=== PATIENT | female | born 1940 | race African-American/Black ===

== ENCOUNTER 2018-06-18 15:18 | Inpatient (IN) ==
[2018-06-18] MEDS ORDERED: SODIUM CHLORIDE 0.9% 500 ML IV STA (16:07)
[2018-06-18] MEDS ORDERED: DIPH/TET/ACEL PERT BOOSTER VACCINE 0.5 ML VIAL IM ONE (16:07)
[2018-06-18 16:55] LABS: Basophils % 0.1 % (0.0-0.8); Hemoglobin 12.5 GM/DL (12.0-16.0); Immature Granulocytes % 1.8 %; Immature Granulocytes Absolute 0.43 #; Lymphocytes # 0.8 10*3/uL (1.4-4.0); Lymphocytes % 3.2 % (21.3-54.2); Mean Corpuscular HGB Conc 33.8 GM/DL (32-36); Mean Corpuscular Hemoglobin 30 PG (27-34); Mean Corpuscular Volume 89.2 FL (87-102); Mean Platelet Volume 10.6 FL (9.6-12.0); Neutrophils # 21.9 10*3/uL (1.4-7.4); Neutrophils % 90.9 % (38.7-73.9); Platelet Count 74 T/CUMM (130-400); Red Blood Count 4.15 MC/CUMM (3.8-5.5); Red Cell Distribution Width 14.6 % (9.3-17.3)
[2018-06-18 17:04] LABS: INR 1.1; PT Patient Result 11.8 SECS
[2018-06-18 17:28] LABS: Albumin 2.9 G/DL (3.4-5.0); Bilirubin,Total 1.8 MG/DL (0.2-1.0); CKMB % 2.8 %; Calcium 8.5 MG/DL (8.5-10.1); Lactic Acid 2.9 MMOL/L (0.4-2.0); Osmolality,Calculated 272.5 MOS/KG (273-304); Total Protein 5.8 G/DL (6.4-8.3); Troponin I 0.026 NG/ML (0.00-0.045)
[2018-06-18 17:41] LABS: Band Neutrophils 4 % (0-10); Lymphocytes 4 % (20-55); Platelet Estimate Decreased; Segmented Neutrophils 88 % (50-85); Total Cells Counted 100
[2018-06-18 18:05] LABS: Sedimentation Rate-Westergren 20 MM/HR (0-30)
[2018-06-18] MEDS: PIPERACILLIN/TAZOBACTAM 3,375 MG in SODIUM CHLORIDE 0.9% 100 ML IV SCH (18:12)
[2018-06-18 18:21] LABS: Apearance,Urine CLEAR (Clear); Bilirubin,Urine Negative (Negative); Blood, Urine Moderate mg/dL (Negative); Glucose,Urine (UA) Negative (Negative); Ketones,Urine 5 mg/dL (Negative); Mucus,Urine Occasional /LPF (Occasional); Nitrite,Urine Negative (Negative); Protein,Urine Negative; RBC,Urine 1 /HPF (0-4); Urine Color Yellow (Yellow); Urine Specific Gravity 1.015 (1.001-1.035); WBC,Urine 1 /HPF (0-6)
[2018-06-18] MEDS ORDERED: METHOTREXATE 2.5 MG TABLET PO SCH (21:00)
[2018-06-18] MEDS: methylPREDNISolone SOD SUC 40 MG/1 ML VIAL IV SCH (21:27)
[2018-06-19] MEDS: PIPERACILLIN/TAZOBACTAM 3,375 MG in SODIUM CHLORIDE 0.9% 100 ML IV SCH ×3 (01:37→18:22)
[2018-06-19] MEDS: methylPREDNISolone SOD SUC 40 MG/1 ML VIAL IV SCH ×2 (05:44→18:19)
[2018-06-19] MEDS: THYROID 60 MG TABLET PO SCH (05:45)
[2018-06-19 06:08] LABS: Basophils % 0.1 % (0.0-0.8); Hematocrit 32.6 VOL% (35.7-47.0); Hemoglobin 11.2 GM/DL (12.0-16.0); Immature Granulocytes % 1.6 %; Lymphocytes # 0.4 10*3/uL (1.4-4.0); Lymphocytes % 1.8 % (21.3-54.2); Mean Corpuscular HGB Conc 34.4 GM/DL (32-36); Mean Corpuscular Hemoglobin 31 PG (27-34); Mean Corpuscular Volume 90.1 FL (87-102); Mean Platelet Volume 11.2 FL (9.6-12.0); Monocytes # 0.5 10*3/uL (0.11-0.8); Monocytes % 2.5 % (1.7-12.7); Neutrophils # 18.1 10*3/uL (1.4-7.4); Red Blood Count 3.62 MC/CUMM (3.8-5.5); Red Cell Distribution Width 15.1 % (9.3-17.3); White Blood Count 19.2 T/CUMM (4-12)
[2018-06-19 06:09] LABS: Platelet Count 69 T/CUMM (130-400)
[2018-06-19 06:29] LABS: Band Neutrophils 2 % (0-10); Hypochromasia 1+; Lymphocytes 2 % (20-55); Ovalocytes Slight; Platelet Estimate Decreased; Segmented Neutrophils 93 % (50-85); Total Cells Counted 100
[2018-06-19 06:30] LABS: Albumin 2.3 G/DL (3.4-5.0); Bilirubin,Total 1.7 MG/DL (0.2-1.0); Calcium 8.2 MG/DL (8.5-10.1); Osmolality,Calculated 280.1 MOS/KG (273-304); Potassium 3.9 MMOL/L (3.5-5.1); Total Protein 5.2 G/DL (6.4-8.3)
[2018-06-19 06:45] LABS: Troponin I 0.063 NG/ML (0.00-0.045)
[2018-06-19] MEDS ORDERED: INFLUENZA VIRUS VACCINE 0.5 ML SYRINGE IM ONE (09:00)
[2018-06-19] MEDS ORDERED: SODIUM CHLORIDE 0.9% 1,000 ML IV SCH (10:30)
[2018-06-19] MEDS: SODIUM CHLORIDE 0.9% 1,000 ML IV SCH ×2 (12:00→23:39)
[2018-06-19] MEDS: FOLIC ACID 1 MG TABLET PO SCH (14:23)
[2018-06-19] MEDS ORDERED: SKIN HEALING OINT (AQUAPHOR) 50 GM TUBE TOP PRN (15:55)
[2018-06-19 18:17] LABS: Total Protein 5.9 G/DL (6.4-8.3)
[2018-06-20] MEDS: PIPERACILLIN/TAZOBACTAM 3,375 MG in SODIUM CHLORIDE 0.9% 100 ML IV SCH ×3 (03:20→17:51)
[2018-06-20 05:13] LABS: Basophils % 0.1 % (0.0-0.8); Hematocrit 30.8 VOL% (35.7-47.0); Immature Granulocytes % 1.3 %; Immature Granulocytes Absolute 0.21 #; Lymphocytes # 0.2 10*3/uL (1.4-4.0); Lymphocytes % 1.4 % (21.3-54.2); Mean Corpuscular HGB Conc 32.5 GM/DL (32-36); Mean Corpuscular Hemoglobin 30 PG (27-34); Mean Corpuscular Volume 90.9 FL (87-102); Mean Platelet Volume 11.2 FL (9.6-12.0); Monocytes # 0.2 10*3/uL (0.11-0.8); Monocytes % 1.3 % (1.7-12.7); Neutrophils # 15.9 10*3/uL (1.4-7.4); Neutrophils % 95.9 % (38.7-73.9); Platelet Count 68 T/CUMM (130-400); Red Blood Count 3.39 MC/CUMM (3.8-5.5); Red Cell Distribution Width 15.1 % (9.3-17.3); White Blood Count 16.6 T/CUMM (4-12)
[2018-06-20 05:36] LABS: Platelet Estimate Decreased; Segmented Neutrophils 99 % (50-85); Total Cells Counted 100
[2018-06-20 05:37] LABS: Hypochromasia Slight; Polychromasia Few
[2018-06-20 06:01] LABS: Albumin 1.9 G/DL (3.4-5.0); Calcium 8.1 MG/DL (8.5-10.1); Osmolality,Calculated 284.8 MOS/KG (273-304); Potassium 3.4 MMOL/L (3.5-5.1); Total Protein 5.1 G/DL (6.4-8.3)
[2018-06-20] MEDS: THYROID 60 MG TABLET PO SCH (06:20)
[2018-06-20] MEDS: methylPREDNISolone SOD SUC 40 MG/1 ML VIAL IV SCH ×2 (06:20→17:52)
[2018-06-20 07:40] LABS: Immunoglobulin A (Chem) 94 MG/DL (70-400); Immunoglobulin G (Chem) 383 MG/DL (700-1600); Immunoglobulin M (Chem) 26 MG/DL (40-230); Total Protein (Chem) 5.9 G/DL (6.4-8.3)
[2018-06-20 08:55] LABS: Albumin (SPE) 3.3 G/DL (3.2-5.3); Albumin (SPE) Rel % 55.7 %; Alpha 1 (SPE) 0.4 G/DL (0.1-0.4); Alpha 1 (SPE) Rel % 6.9 %; Alpha 2 (SPE) Rel % 17.6 %; Beta (SPE) 0.8 G/DL (0.5-1.1); Beta (SPE) Rel % 13.8 %; Gamma (SPE) 0.4 G/DL (0.7-1.7)
[2018-06-20] MEDS: FOLIC ACID 1 MG TABLET PO SCH (09:22)
[2018-06-20] MEDS: SODIUM CHLORIDE 0.9% 1,000 ML IV SCH ×2 (15:09→22:55)
[2018-06-20] MEDS: CARVEDILOL 12.5 MG TABLET PO SCH (17:52)
[2018-06-21] MEDS: PIPERACILLIN/TAZOBACTAM 3,375 MG in SODIUM CHLORIDE 0.9% 100 ML IV SCH ×4 (02:10→17:07)
[2018-06-21 05:57] LABS: Basophils % 0.1 % (0.0-0.8); Hematocrit 29.6 VOL% (35.7-47.0); Hemoglobin 9.8 GM/DL (12.0-16.0); Immature Granulocytes % 0.9 %; Immature Granulocytes Absolute 0.11 #; Lymphocytes # 0.3 10*3/uL (1.4-4.0); Lymphocytes % 2.3 % (21.3-54.2); Mean Corpuscular HGB Conc 33.1 GM/DL (32-36); Mean Corpuscular Hemoglobin 30 PG (27-34); Mean Corpuscular Volume 91.4 FL (87-102); Mean Platelet Volume 11.7 FL (9.6-12.0); Monocytes # 0.1 10*3/uL (0.11-0.8); Monocytes % 0.6 % (1.7-12.7); Neutrophils # 12.1 10*3/uL (1.4-7.4); Neutrophils % 96.1 % (38.7-73.9); Platelet Count 90 T/CUMM (130-400); Red Blood Count 3.24 MC/CUMM (3.8-5.5); Red Cell Distribution Width 14.7 % (9.3-17.3); White Blood Count 12.6 T/CUMM (4-12)
[2018-06-21 06:14] LABS: Albumin 1.8 G/DL (3.4-5.0); Bilirubin,Total 0.8 MG/DL (0.2-1.0); Calcium 8.1 MG/DL (8.5-10.1); Osmolality,Calculated 289.5 MOS/KG (273-304); Potassium 3.4 MMOL/L (3.5-5.1)
[2018-06-21 06:28] LABS: Lymphocytes 1 % (20-55); Platelet Estimate Decreased; Segmented Neutrophils 99 % (50-85); Total Cells Counted 100
[2018-06-21 06:29] LABS: Polychromasia Few
[2018-06-21] MEDS: methylPREDNISolone SOD SUC 40 MG/1 ML VIAL IV SCH ×3 (06:56→17:37)
[2018-06-21] MEDS: THYROID 60 MG TABLET PO SCH (06:56)
[2018-06-21] MEDS: POTASSIUM CHLORIDE 20 MEQ TABLET PO PRN ×3 (07:56→15:16)
[2018-06-21] MEDS: FOLIC ACID 1 MG TABLET PO SCH ×2 (07:56→08:54)
[2018-06-21] MEDS: CARVEDILOL 12.5 MG TABLET PO SCH ×3 (07:58→16:09)
[2018-06-21] MEDS: LOSARTAN 25 MG TABLET PO SCH (07:59)
[2018-06-21] MEDS: SODIUM CHLORIDE 0.9% 1,000 ML IV SCH (13:24)
[2018-06-22] MEDS: PIPERACILLIN/TAZOBACTAM 3,375 MG in SODIUM CHLORIDE 0.9% 100 ML IV SCH ×3 (02:54→17:11)
[2018-06-22] MEDS: SODIUM CHLORIDE 0.9% 1,000 ML IV SCH ×2 (02:57→17:17)
[2018-06-22 05:03] LABS: Basophils % 0.1 % (0.0-0.8); Hematocrit 28.6 VOL% (35.7-47.0); Hemoglobin 9.5 GM/DL (12.0-16.0); Immature Granulocytes % 0.8 %; Immature Granulocytes Absolute 0.07 #; Lymphocytes # 0.5 10*3/uL (1.4-4.0); Lymphocytes % 5.8 % (21.3-54.2); Mean Corpuscular HGB Conc 33.2 GM/DL (32-36); Mean Corpuscular Hemoglobin 30 PG (27-34); Mean Corpuscular Volume 91.7 FL (87-102); Mean Platelet Volume 11.2 FL (9.6-12.0); Monocytes # 0.1 10*3/uL (0.11-0.8); Monocytes % 0.7 % (1.7-12.7); Neutrophils # 7.9 10*3/uL (1.4-7.4); Neutrophils % 92.6 % (38.7-73.9); Platelet Count 87 T/CUMM (130-400); Red Blood Count 3.12 MC/CUMM (3.8-5.5); Red Cell Distribution Width 14.9 % (9.3-17.3); White Blood Count 8.5 T/CUMM (4-12)
[2018-06-22 05:33] LABS: Calcium 7.9 MG/DL (8.5-10.1); Osmolality,Calculated 288.5 MOS/KG (273-304)
[2018-06-22] MEDS: THYROID 60 MG TABLET PO SCH (05:49)
[2018-06-22] MEDS: methylPREDNISolone SOD SUC 40 MG/1 ML VIAL IV SCH (05:49)
[2018-06-22 06:02] LABS: Band Neutrophils 2 % (0-10); Hypochromasia 2+; Lymphocytes 5 % (20-55); Platelet Estimate Decreased; Segmented Neutrophils 92 % (50-85); Total Cells Counted 100
[2018-06-22] MEDS: CARVEDILOL 12.5 MG TABLET PO SCH ×2 (08:59→17:11)
[2018-06-22] MEDS: FOLIC ACID 1 MG TABLET PO SCH (08:59)
[2018-06-22] MEDS: LOSARTAN 25 MG TABLET PO SCH (08:59)
[2018-06-23] MEDS: PIPERACILLIN/TAZOBACTAM 3,375 MG in SODIUM CHLORIDE 0.9% 100 ML IV SCH ×3 (01:56→17:12)
[2018-06-23 05:48] LABS: Basophils % 0.1 % (0.0-0.8); Hematocrit 31.5 VOL% (35.7-47.0); Hemoglobin 10.1 GM/DL (12.0-16.0); Immature Granulocytes % 0.9 %; Immature Granulocytes Absolute 0.08 #; Lymphocytes # 1.2 10*3/uL (1.4-4.0); Lymphocytes % 13.3 % (21.3-54.2); Mean Corpuscular HGB Conc 32.1 GM/DL (32-36); Mean Corpuscular Hemoglobin 30 PG (27-34); Mean Corpuscular Volume 92.1 FL (87-102); Mean Platelet Volume 10.7 FL (9.6-12.0); Monocytes # 0.1 10*3/uL (0.11-0.8); Monocytes % 0.9 % (1.7-12.7); Neutrophils # 7.9 10*3/uL (1.4-7.4); Neutrophils % 84.8 % (38.7-73.9); Platelet Count 81 T/CUMM (130-400); Red Blood Count 3.42 MC/CUMM (3.8-5.5); Red Cell Distribution Width 14.6 % (9.3-17.3); White Blood Count 9.3 T/CUMM (4-12)
[2018-06-23 06:25] LABS: Anisocytosis 1+; Band Neutrophils 7 % (0-10); Lymphocytes 21 % (20-55); Nucleated Red Blood Cells 1 (0-5); Platelet Estimate Decreased; Segmented Neutrophils 71 % (50-85); Total Cells Counted 100
[2018-06-23] MEDS: THYROID 60 MG TABLET PO SCH (07:02)
[2018-06-23] MEDS: CARVEDILOL 12.5 MG TABLET PO SCH ×2 (08:38→17:12)
[2018-06-23] MEDS: methylPREDNISolone SOD SUC 40 MG/1 ML VIAL IV SCH (08:39)
[2018-06-23] MEDS: FOLIC ACID 1 MG TABLET PO SCH (08:39)
[2018-06-23] MEDS: LOSARTAN 25 MG TABLET PO SCH (08:39)
[2018-06-23] MEDS: IMMUNE GLOBULIN 10% 20 GM, IMMUNE GLOBULIN 10% 5 GM in PREMIX 1 EACH IV SCH (09:56)
[2018-06-24] MEDS: PIPERACILLIN/TAZOBACTAM 3,375 MG in SODIUM CHLORIDE 0.9% 100 ML IV SCH ×3 (01:32→18:22)
[2018-06-24] MEDS: THYROID 60 MG TABLET PO SCH (06:49)
[2018-06-24] MEDS: IMMUNE GLOBULIN 10% 20 GM, IMMUNE GLOBULIN 10% 5 GM in PREMIX 1 EACH IV SCH (09:04)
[2018-06-24] MEDS: FOLIC ACID 1 MG TABLET PO SCH (09:10)
[2018-06-24] MEDS: LOSARTAN 25 MG TABLET PO SCH (09:11)
[2018-06-24] MEDS: methylPREDNISolone SOD SUC 40 MG/1 ML VIAL IV SCH (09:11)
[2018-06-24] MEDS: CARVEDILOL 12.5 MG TABLET PO SCH ×2 (09:11→17:20)
[2018-06-24 09:25] LABS: Osmolality,Calculated 279.7 MOS/KG (273-304); Potassium 3.6 MMOL/L (3.5-5.1)
[2018-06-24] MEDS: POTASSIUM CHLORIDE 20 MEQ TABLET PO PRN (09:27)
[2018-06-25] MEDS: PIPERACILLIN/TAZOBACTAM 3,375 MG in SODIUM CHLORIDE 0.9% 100 ML IV SCH ×3 (04:26→23:45)
[2018-06-25 05:24] LABS: Basophils % 0.2 % (0.0-0.8); Hematocrit 29.6 VOL% (35.7-47.0); Hemoglobin 9.6 GM/DL (12.0-16.0); Immature Granulocytes % 0.8 %; Immature Granulocytes Absolute 0.05 #; Lymphocytes # 1.2 10*3/uL (1.4-4.0); Lymphocytes % 19.1 % (21.3-54.2); Mean Corpuscular HGB Conc 32.4 GM/DL (32-36); Mean Corpuscular Hemoglobin 30 PG (27-34); Mean Corpuscular Volume 91.1 FL (87-102); Mean Platelet Volume 11.2 FL (9.6-12.0); Monocytes # 0.1 10*3/uL (0.11-0.8); Monocytes % 1.8 % (1.7-12.7); Neutrophils # 4.7 10*3/uL (1.4-7.4); Neutrophils % 78.1 % (38.7-73.9); Platelet Count 69 T/CUMM (130-400); Red Blood Count 3.25 MC/CUMM (3.8-5.5); Red Cell Distribution Width 14.5 % (9.3-17.3)
[2018-06-25 06:00] LABS: Hypochromasia 1+; Lymphocytes 19 % (20-55); Platelet Estimate Decreased; Segmented Neutrophils 80 % (50-85); Total Cells Counted 100
[2018-06-25 06:02] LABS: Osmolality,Calculated 278.8 MOS/KG (273-304); Potassium 3.4 MMOL/L (3.5-5.1)
[2018-06-25] MEDS: THYROID 60 MG TABLET PO SCH (06:46)
[2018-06-25] MEDS ORDERED: MAGNESIUM SULF RIDER 2 GM in PREMIX 1 EACH IV PRN (08:07)
[2018-06-25] MEDS ORDERED: MAGNESIUM SULF RIDER 4 GM in PREMIX 1 EACH IV PRN (08:07)
[2018-06-25] MEDS: CARVEDILOL 12.5 MG TABLET PO SCH ×2 (08:55→17:47)
[2018-06-25] MEDS: POTASSIUM CHLORIDE 20 MEQ TABLET PO PRN ×3 (08:56→13:38)
[2018-06-25] MEDS: LOSARTAN 25 MG TABLET PO SCH (08:56)
[2018-06-25] MEDS: FOLIC ACID 1 MG TABLET PO SCH (08:56)
[2018-06-25] MEDS: methylPREDNISolone SOD SUC 40 MG/1 ML VIAL IV SCH (08:56)
[2018-06-25] MEDS: IMMUNE GLOBULIN 10% 20 GM, IMMUNE GLOBULIN 10% 5 GM in PREMIX 1 EACH IV SCH (12:22)
[2018-06-26] MEDS: PIPERACILLIN/TAZOBACTAM 3,375 MG in SODIUM CHLORIDE 0.9% 100 ML IV SCH (01:34)
[2018-06-26 04:25] LABS: Anti SS-A Antibodies < 16 EU/ML
[2018-06-26 05:43] LABS: Basophils % 0.2 % (0.0-0.8); Hematocrit 30.7 VOL% (35.7-47.0); Hemoglobin 9.8 GM/DL (12.0-16.0); Immature Granulocytes % 0.6 %; Immature Granulocytes Absolute 0.04 #; Mean Corpuscular HGB Conc 31.9 GM/DL (32-36); Mean Corpuscular Hemoglobin 29 PG (27-34); Mean Corpuscular Volume 90.8 FL (87-102); Mean Platelet Volume 10.6 FL (9.6-12.0); Monocytes # 0.1 10*3/uL (0.11-0.8); Monocytes % 1.9 % (1.7-12.7); Neutrophils # 5.2 10*3/uL (1.4-7.4); Neutrophils % 81.3 % (38.7-73.9); Platelet Count 77 T/CUMM (130-400); Red Blood Count 3.38 MC/CUMM (3.8-5.5); Red Cell Distribution Width 14.3 % (9.3-17.3); White Blood Count 6.4 T/CUMM (4-12)
[2018-06-26 06:07] LABS: Band Neutrophils 4 % (0-10); Eosinophils 1 % (0-10); Hypochromasia 1+; Lymphocytes 11 % (20-55); Ovalocytes Slight; Platelet Estimate Decreased; Segmented Neutrophils 83 % (50-85); Total Cells Counted 100
[2018-06-26 06:16] LABS: Calcium 8.2 MG/DL (8.5-10.1); Potassium 4.1 MMOL/L (3.5-5.1)
[2018-06-26] MEDS: THYROID 60 MG TABLET PO SCH (06:43)
[2018-06-26] MEDS: IMMUNE GLOBULIN 10% 20 GM, IMMUNE GLOBULIN 10% 5 GM in PREMIX 1 EACH IV SCH (09:29)
[2018-06-26] MEDS: CARVEDILOL 12.5 MG TABLET PO SCH ×2 (09:30→18:03)
[2018-06-26] MEDS: FOLIC ACID 1 MG TABLET PO SCH (09:30)
[2018-06-26] MEDS: methylPREDNISolone SOD SUC 40 MG/1 ML VIAL IV SCH (09:30)
[2018-06-26] MEDS: LOSARTAN 25 MG TABLET PO SCH (09:30)
[2018-06-26] MEDS: CLINDAMYCIN 300 MG CAPSULE PO SCH ×2 (16:07→21:45)
[2018-06-27 05:43] LABS: Hemoglobin 9.7 GM/DL (12.0-16.0); Immature Granulocytes % 0.4 %; Immature Granulocytes Absolute 0.03 #; Lymphocytes # 1.1 10*3/uL (1.4-4.0); Mean Corpuscular HGB Conc 32.3 GM/DL (32-36); Mean Corpuscular Hemoglobin 29 PG (27-34); Mean Corpuscular Volume 90.4 FL (87-102); Mean Platelet Volume 11.3 FL (9.6-12.0); Monocytes # 0.2 10*3/uL (0.11-0.8); Monocytes % 2.7 % (1.7-12.7); Neutrophils # 5.9 10*3/uL (1.4-7.4); Neutrophils % 81.9 % (38.7-73.9); Platelet Count 83 T/CUMM (130-400); Red Blood Count 3.32 MC/CUMM (3.8-5.5); Red Cell Distribution Width 14.4 % (9.3-17.3); White Blood Count 7.1 T/CUMM (4-12)
[2018-06-27] MEDS: CLINDAMYCIN 300 MG CAPSULE PO SCH ×3 (06:05→21:26)
[2018-06-27] MEDS: THYROID 60 MG TABLET PO SCH (06:05)
[2018-06-27 07:07] LABS: Calcium 8.3 MG/DL (8.5-10.1)
[2018-06-27 07:08] LABS: Potassium 3.9 MMOL/L (3.5-5.1)
[2018-06-27 07:40] LABS: Band Neutrophils 1 % (0-10); Hypochromasia 1+; Lymphocytes 12 % (20-55); Segmented Neutrophils 82 % (50-85); Total Cells Counted 100
[2018-06-27 07:41] LABS: Microcytosis 1+; Ovalocytes Slight; Platelet Estimate Decreased
[2018-06-27] MEDS: methylPREDNISolone SOD SUC 40 MG/1 ML VIAL IV SCH (10:00)
[2018-06-27] MEDS: FOLIC ACID 1 MG TABLET PO SCH (10:00)
[2018-06-27] MEDS: LOSARTAN 25 MG TABLET PO SCH (10:00)
[2018-06-27] MEDS: CARVEDILOL 12.5 MG TABLET PO SCH ×2 (10:01→16:40)
[2018-06-27] MEDS: IMMUNE GLOBULIN 10% 20 GM, IMMUNE GLOBULIN 10% 5 GM in PREMIX 1 EACH IV SCH (10:01)
[2018-06-27] MEDS: POTASSIUM CHLORIDE 20 MEQ TABLET PO PRN (16:40)
[2018-06-28 05:14] LABS: Hemoglobin 9.8 GM/DL (12.0-16.0); Immature Granulocytes % 0.7 %; Immature Granulocytes Absolute 0.04 #; Lymphocytes # 0.8 10*3/uL (1.4-4.0); Lymphocytes % 14.1 % (21.3-54.2); Mean Corpuscular HGB Conc 32.7 GM/DL (32-36); Mean Corpuscular Hemoglobin 30 PG (27-34); Mean Corpuscular Volume 91.2 FL (87-102); Mean Platelet Volume 11.1 FL (9.6-12.0); Monocytes # 0.2 10*3/uL (0.11-0.8); Neutrophils # 4.6 10*3/uL (1.4-7.4); Neutrophils % 82.2 % (38.7-73.9); Red Blood Count 3.29 MC/CUMM (3.8-5.5); Red Cell Distribution Width 14.4 % (9.3-17.3); White Blood Count 5.6 T/CUMM (4-12)
[2018-06-28 05:20] LABS: Platelet Count 89 T/CUMM (130-400)
[2018-06-28 05:30] LABS: Calcium 8.4 MG/DL (8.5-10.1); Potassium 4.1 MMOL/L (3.5-5.1)
[2018-06-28] MEDS: THYROID 60 MG TABLET PO SCH (05:49)
[2018-06-28] MEDS: CLINDAMYCIN 300 MG CAPSULE PO SCH ×2 (05:49→13:48)
[2018-06-28 06:39] LABS: Hypochromasia 1+; Ovalocytes Slight; Platelet Estimate Decreased
[2018-06-28 06:40] LABS: Microcytosis 1+
[2018-06-28] MEDS: methylPREDNISolone SOD SUC 40 MG/1 ML VIAL IV SCH (09:29)
[2018-06-28] MEDS: LOSARTAN 25 MG TABLET PO SCH (09:29)
[2018-06-28] MEDS: CARVEDILOL 12.5 MG TABLET PO SCH (09:29)
[2018-06-28] MEDS: FOLIC ACID 1 MG TABLET PO SCH (09:29)
[2018-06-28] MEDS: IMMUNE GLOBULIN 10% 20 GM, IMMUNE GLOBULIN 10% 5 GM in PREMIX 1 EACH IV SCH (09:43)
[2018-06-28 11:29] VITALS: BP 159/86
== END 2018-06-28 14:20 | disposition swing bed (61) | DRG 546 ==
LOC: EDBD → EDUNIT# → N.ED 15:18 → SUATTDRO 18:19 → N.EDINP 18:19 → N.5E 19:21
PROVIDERS: ADMIT Internal Medicine; ATTEND Family Medicine

== ENCOUNTER 2018-06-29 23:10 | Inpatient (IN) ==
[2018-06-29] MEDS ORDERED: SODIUM CHLORIDE 0.9% 500 ML IV STA (23:54)
[2018-06-29] MEDS ORDERED: ONDANSETRON 4 MG/2 ML VIAL IV STA (23:57)
[2018-06-29] MEDS ORDERED: PANTOPRAZOLE 40 MG VIAL IV STA (23:57)
[2018-06-30 00:19] LABS: Basophils % 0.4 % (0.0-0.8); Hematocrit 38.3 VOL% (35.7-47.0); Hemoglobin 12.8 GM/DL (12.0-16.0); Immature Granulocytes % 1.6 %; Immature Granulocytes Absolute 0.04 #; Lymphocytes # 0.4 10*3/uL (1.4-4.0); Lymphocytes % 17.5 % (21.3-54.2); Mean Corpuscular HGB Conc 33.4 GM/DL (32-36); Mean Corpuscular Hemoglobin 30 PG (27-34); Mean Corpuscular Volume 89.5 FL (87-102); Mean Platelet Volume 10.8 FL (9.6-12.0); Monocytes # 0.1 10*3/uL (0.11-0.8); Monocytes % 4.4 % (1.7-12.7); NRBC # 0.02 10*3/uL; Neutrophils # 1.9 10*3/uL (1.4-7.4); Neutrophils % 76.1 % (38.7-73.9); Red Blood Count 4.28 MC/CUMM (3.8-5.5); Red Cell Distribution Width 14.3 % (9.3-17.3); White Blood Count 2.5 T/CUMM (4-12)
[2018-06-30 00:22] LABS: Platelet Count 70 T/CUMM (130-400)
[2018-06-30 00:37] LABS: INR 1.1; PT Patient Result 11.8 SECS; Partial Thromboplastin Time 23.8 SECS (0-40)
[2018-06-30 00:58] LABS: Albumin 2.2 G/DL (3.4-5.0); Bilirubin,Total 0.8 MG/DL (0.2-1.0); Calcium 8.1 MG/DL (8.5-10.1); Osmolality,Calculated 262.9 MOS/KG (273-304); Potassium 4.2 MMOL/L (3.5-5.1); Troponin I 0.032 NG/ML (0.00-0.045)
[2018-06-30] MEDS ORDERED: MORPHINE 4 MG/1 ML VIAL IV PRN (01:37)
[2018-06-30] MEDS ORDERED: ONDANSETRON 4 MG/2 ML VIAL IV PRN (01:37)
[2018-06-30] MEDS ORDERED: diphenhydrAMINE CAP 25 MG CAPSULE PO PRN (01:37)
[2018-06-30] MEDS ORDERED: NICOTINE 21 MG/24 HR PATCH TRANSDERM PRN (01:37)
[2018-06-30] MEDS ORDERED: PROMETHAZINE 25 MG/1 ML VIAL IM PRN (01:37)
[2018-06-30] MEDS ORDERED: ACETAMINOPHEN 325 MG TABLET PO PRN (01:37)
[2018-06-30 03:05] LABS: Hypochromasia Slight; Platelet Estimate Decreased
[2018-06-30] MEDS: SODIUM CHLORIDE 0.9% 1,000 ML IV SCH ×5 (03:57→19:40)
[2018-06-30] MEDS: LOSARTAN 25 MG TABLET PO SCH (09:50)
[2018-06-30] MEDS: CARVEDILOL 12.5 MG TABLET PO SCH ×2 (09:50→21:35)
[2018-06-30] MEDS: THYROID 60 MG TABLET PO SCH (09:50)
[2018-06-30 14:32] LABS: Hematocrit 27.9 VOL% (35.7-47.0); Hemoglobin 9.2 GM/DL (12.0-16.0)
[2018-06-30] MEDS: predniSONE 20 MG TABLET PO SCH (14:46)
[2018-06-30] MEDS: PANTOPRAZOLE 40 MG TABLET PO SCH ×2 (14:47→21:35)
[2018-06-30] MEDS ORDERED: POLYETHYLENE GLYCOL POWDER 17 GM PACK PO SCH (21:00)
[2018-07-01 01:17] LABS: Basophils % 0.5 % (0.0-0.8); Hematocrit 25.5 VOL% (35.7-47.0); Hemoglobin 8.2 GM/DL (12.0-16.0); Immature Granulocytes % 1.4 %; Immature Granulocytes Absolute 0.03 #; Lymphocytes # 0.4 10*3/uL (1.4-4.0); Lymphocytes % 19.1 % (21.3-54.2); Mean Corpuscular HGB Conc 32.2 GM/DL (32-36); Mean Corpuscular Hemoglobin 29 PG (27-34); Mean Corpuscular Volume 90.7 FL (87-102); Mean Platelet Volume 10.7 FL (9.6-12.0); Monocytes # 0.1 10*3/uL (0.11-0.8); Monocytes % 4.1 % (1.7-12.7); Neutrophils # 1.7 10*3/uL (1.4-7.4); Neutrophils % 74.9 % (38.7-73.9); Platelet Count 85 T/CUMM (130-400); Red Blood Count 2.81 MC/CUMM (3.8-5.5); Red Cell Distribution Width 14.1 % (9.3-17.3); White Blood Count 2.2 T/CUMM (4-12)
[2018-07-01 01:44] LABS: Anisocytosis Slight; Band Neutrophils 22 % (0-10); Eosinophils 1 % (0-10); Lymphocytes 14 % (20-55); Macrocytosis Slight; Metamyelocytes 1 %; Platelet Estimate Decreased; Segmented Neutrophils 57 % (50-85); Total Cells Counted 100
[2018-07-01] MEDS ORDERED: MAGNESIUM CITRATE 300 ML BOTTLE PO ONE (06:00)
[2018-07-01] MEDS: BISACODYL 5 MG TABLET PO SCH ×3 (06:49→21:00)
[2018-07-01] MEDS: predniSONE 20 MG TABLET PO SCH (09:00)
[2018-07-01] MEDS: THYROID 60 MG TABLET PO SCH (09:00)
[2018-07-01] MEDS: LOSARTAN 25 MG TABLET PO SCH (09:00)
[2018-07-01] MEDS: PANTOPRAZOLE 40 MG TABLET PO SCH ×2 (09:00→21:01)
[2018-07-01] MEDS: CARVEDILOL 12.5 MG TABLET PO SCH ×2 (09:01→21:01)
[2018-07-01] MEDS ORDERED: SODIUM CHLORIDE 0.9% 1,000 ML IV PRN (10:35)
[2018-07-01] MEDS ORDERED: FUROSEMIDE 20 MG/2 ML VIAL IV PRN (10:35)
[2018-07-01] MEDS: SODIUM CHLORIDE 0.9% 1,000 ML IV SCH ×3 (11:24→17:52)
[2018-07-01 13:01] LABS: Hematocrit 25.2 VOL% (35.7-47.0); Hemoglobin 8.4 GM/DL (12.0-16.0)
[2018-07-01] MEDS ORDERED: FUROSEMIDE 20 MG/2 ML VIAL IV SCH (17:30)
[2018-07-01] MEDS ORDERED: POLYETHYLENE GLYCOL POWDER 255 GM BOTTLE PO ONE (18:00)
[2018-07-01 22:57] LABS: Hematocrit 32.9 VOL% (35.7-47.0)
[2018-07-01 22:59] LABS: Hemoglobin 11.2 GM/DL (12.0-16.0)
[2018-07-02 01:12] LABS: Hematocrit 30.3 VOL% (35.7-47.0); Hemoglobin 10.2 GM/DL (12.0-16.0)
[2018-07-02] MEDS: BISACODYL 5 MG TABLET PO SCH ×4 (01:17→21:07)
[2018-07-02 04:50] LABS: Hematocrit 30.5 VOL% (35.7-47.0); Hemoglobin 10.2 GM/DL (12.0-16.0)
[2018-07-02] MEDS: SODIUM CHLORIDE 0.9% 1,000 ML IV SCH ×3 (05:50→13:25)
[2018-07-02 07:23] LABS: Osmolality,Calculated 270.2 MOS/KG (273-304); Potassium 3.2 MMOL/L (3.5-5.1)
[2018-07-02] MEDS: LOSARTAN 25 MG TABLET PO SCH (09:35)
[2018-07-02] MEDS: predniSONE 20 MG TABLET PO SCH (09:35)
[2018-07-02] MEDS: CARVEDILOL 12.5 MG TABLET PO SCH ×2 (09:35→21:08)
[2018-07-02] MEDS: THYROID 60 MG TABLET PO SCH (09:35)
[2018-07-02] MEDS: PANTOPRAZOLE 40 MG TABLET PO SCH ×2 (09:36→21:08)
[2018-07-02] MEDS: POTASSIUM CHLORIDE 20 MEQ TABLET PO PRN ×3 (10:06→21:07)
[2018-07-02] MEDS ORDERED: POLYETHYLENE GLYCOL POWDER 255 GM BOTTLE PO ONE (13:00)
[2018-07-03] MEDS: SODIUM CHLORIDE 0.9% 1,000 ML IV SCH ×3 (00:06→09:47)
[2018-07-03] MEDS: POTASSIUM CHLORIDE 20 MEQ TABLET PO PRN (00:25)
[2018-07-03] MEDS ORDERED: MAGNESIUM CITRATE 300 ML BOTTLE PO ONE (03:30)
[2018-07-03 05:55] LABS: Hematocrit 30.4 VOL% (35.7-47.0); Hemoglobin 10.3 GM/DL (12.0-16.0); Immature Granulocytes % 1.9 %; Immature Granulocytes Absolute 0.09 #; Lymphocytes # 1.2 10*3/uL (1.4-4.0); Lymphocytes % 24.4 % (21.3-54.2); Mean Corpuscular HGB Conc 33.9 GM/DL (32-36); Mean Corpuscular Hemoglobin 30 PG (27-34); Mean Corpuscular Volume 87.4 FL (87-102); Mean Platelet Volume 10.3 FL (9.6-12.0); Monocytes # 0.3 10*3/uL (0.11-0.8); Monocytes % 7.2 % (1.7-12.7); NRBC # 0.03 10*3/uL; Neutrophils # 3.1 10*3/uL (1.4-7.4); Neutrophils % 66.5 % (38.7-73.9); Platelet Count 104 T/CUMM (130-400); Red Blood Count 3.48 MC/CUMM (3.8-5.5); Red Cell Distribution Width 14.3 % (9.3-17.3); White Blood Count 4.7 T/CUMM (4-12)
[2018-07-03 06:07] LABS: Calcium 8.2 MG/DL (8.5-10.1); Osmolality,Calculated 265.2 MOS/KG (273-304); Potassium 3.8 MMOL/L (3.5-5.1)
[2018-07-03 06:16] LABS: Band Neutrophils 2 % (0-10); Eosinophils 1 % (0-10); Lymphocytes 15 % (20-55); Segmented Neutrophils 75 % (50-85); Total Cells Counted 100
[2018-07-03 06:17] LABS: Hypochromasia 1+; Macrocytosis Slight; Ovalocytes Slight; Platelet Estimate Decreased
[2018-07-03] MEDS: THYROID 60 MG TABLET PO SCH (09:46)
[2018-07-03] MEDS: LOSARTAN 25 MG TABLET PO SCH (09:47)
[2018-07-03] MEDS: predniSONE 20 MG TABLET PO SCH (09:47)
[2018-07-03] MEDS: PANTOPRAZOLE 40 MG TABLET PO SCH (09:47)
[2018-07-03] MEDS: CARVEDILOL 12.5 MG TABLET PO SCH (09:47)
[2018-07-03] MEDS ORDERED: LIDOCAINE 100 MG/5 ML SYRINGE ONE (10:00)
[2018-07-03] MEDS ORDERED: PROPOFOL 200 MG/20 ML VIAL IV ONE (10:00)
[2018-07-03 15:43] VITALS: BP 107/60
== END 2018-07-03 14:26 | DRG 378 ==
LOC: EDBD → EDUNIT# → N.ED 23:10 → SUATTDRO 06-30 01:07 → N.EDINP 06-30 01:07 → N.5E 06-30 01:26
PROVIDERS: ADMIT Internal Medicine; ATTEND Internal Medicine